=== PATIENT | male | born 1995 | race Caucasian/White ===

== ENCOUNTER 2016-07-16 05:50 | Emergency (ER) | payer OTHER ==
[2016-07-16 03:18] LABS: BASOPHILS 0.2 %; BASOPHILS ABSOLUTE 0.03 10/3/uL (0.0-0.16); EOSINOPHILS 0.1 %; EOSINOPHILS ABSOLUTE 0.01 10/3/uL (0.0-0.53); HEMATOCRIT 41.1 % (40.0-51.0); HEMOGLOBIN 14.7 g/dL (13.6-17.8); IMMATURE GRANULOCYTES 0.2 %; IMMATURE GRANULOCYTES ABSOLUTE 0.02 10/3/uL (0.0-0.11); LYMPHOCYTES 6.4 %; LYMPHOCYTES ABSOLUTE 0.84 10/3/uL (0.67-4.30); MANUAL DIFF NO %; MEAN CORPUS HGB CONC 35.8 g/dL (32.0-36.0); MEAN CORPUSCULAR HEMOGLOB 29.5 pg (26.0-34.0); MEAN CORPUSCULAR VOLUME 82.4 fL (80-100); MEAN PLATELET VOLUME 10.4 fL (9.2-13.0); MONOCYTES 9.3 %; MONOCYTES ABSOLUTE 1.21 10/3/uL (0.21-1.20); NEUTROPHILS 83.8 %; NEUTROPHILS ABSOLUTE 10.92 10/3/uL (2.02-8.40); PLATELET COUNT 237 10/3/uL (150-400); RBC DISTRIBUTION WIDTH 12.7 % (12.0-16.0); RED CELL COUNT 4.99 10/6/uL (4.7-6.1)
[2016-07-16 03:24] LABS: ASCORBIC ACID (UR NOT ORDER) NEG (NEG); BILIRUBIN, URINE NEGATIVE (NEG); ER URINALYSIS TAT 0 Hrs 00 Mins; KETONE, URINE 20 MG/DL (NEG); LEUKOCYTE ESTERASE(NOT OR NEG (NEG); NITRITE (URINE) NEG (NEG); WBC (NOT ORDERED) (RFLEX) 1 (0-5)
[2016-07-16 03:45] LABS: A/G RATIO 1.5 (0.7-1.9); ALBUMIN 4.8 G/DL (3.5-5.0); BUN (BLOOD UREA NITROGEN) 17 MG/DL (6-23); CALCIUM, SERUM 9.3 MG/DL (8.5-10.4); CHLORIDE, SERUM 105 MMOL/L (96-112); CO2 (CARBON DIOXIDE) 30 MMOL/L (24-34); CREATININE 0.99 MG/DL (0.70-1.30); GFR AFRICAN AMERICAN 127 ML/MIN (>=60); GFR NON AFRICAN AMERICAN 109 ML/MIN (>=60); GLOBULIN 3.1 G/DL (2.5-4.1); SGOT(AST) 21 U/L (5-40); SODIUM, SERUM 141 MMOL/L (135-148); TOTAL PROTEIN 7.9 G/DL (6.0-8.5)
[2016-07-16 03:46] LABS: ALKALINE PHOSPHATASE 89 U/L (45-117); GLUCOSE, SERUM 104 MG/DL (60-99); POTASSIUM, SERUM 3.3 MMOL/L (3.5-5.3)
[2016-07-16 03:56] LABS: SGPT(ALT) 10 U/L (5-65)
[2016-07-16 05:10] LABS: ACETAMINOPHEN LEVEL (TYLENOL) < 2.0 MCG/ML (10.0-20.0); ALCOHOL < 10 MG/DL (0); SALICYLATE < 1.7 MG/DL (-)
[2016-07-16 05:14] LABS: AMPHETAMINES (NOT ORD) NEG (NEG); BARBITURATES (NOT ORDERED NEG (NEG); BENZODIAZEPINES (NOT ORD) NEG (NEG); CANNABINOIDS (THC) POS (NEG); COCAINE (NOT ORDERED) NEG (NEG); OPIATES NEG (NEG); PHENCYCLIDINE(PCP) NEG (NEG); TRICYCLICS NEG (NEG)
== END 2016-07-16 06:05 | disposition home or self-care (01) ==
LOC: ER 05:50
PROVIDERS: Hospitalist; Physician Assistant
DX: R10.9 Unspecified abdominal pain (principal); R11.0 Nausea; K21.9 Gastro-esophageal reflux disease without esophagitis; Z88.1 Allergy status to other antibiotic agents
CPT/HCPCS: 80053; 80305; 80307; 81001; 83690; 85025; 99284; A9270-GY